=== PATIENT | female | born 1980 | race African-American/Black ===

== ENCOUNTER 2021-04-14 15:24 | Emergency (ER) | payer OTHER ==
[~2021-04-14] VITALS: Ht 167.6 cm; Wt 77.1 kg
== END 2021-04-14 17:33 | disposition home or self-care (01) ==
LOC: ER 15:24
DX: S61.012A Laceration without foreign body of left thumb without damage to nail, initial encounter (principal); W26.0XXA Contact with knife, initial encounter; Y92.9 Unspecified place or not applicable

== ENCOUNTER 2021-04-21 09:48 | Emergency (ER) | payer OTHER ==
[~2021-04-21] VITALS: Ht 170.2 cm; Wt 70.3 kg
== END 2021-04-21 10:38 | disposition home or self-care (01) ==
LOC: ER 09:48
DX: Z48.02 Encounter for removal of sutures (principal)

== ENCOUNTER 2021-04-30 09:20 | Emergency (ER) | payer OTHER ==
[~2021-04-30] VITALS: Ht 167.6 cm; Wt 68.0 kg
== END 2021-04-30 10:53 | disposition home or self-care (01) ==
LOC: ER 09:20
DX: Z48.00 Encounter for change or removal of nonsurgical wound dressing (principal)